=== PATIENT | female | born 1985 ===

== ENCOUNTER 2019-03-09 03:53 | Inpatient (IN) | payer MEDICAID ==
[2019-03-09 05:44] VITALS: BMI 27.8
[2019-03-09] MEDS ORDERED: Lactated Ringer's 1,000 ML IV SCH (05:45)
--- NOTE | 2019-03-09 05:50 | OBADHP ---
Datetime: 03/09/2019 05:39 Admit Comment, IP Provider: 33 y/o , 37.5 wks based on LMP with CHARISSE 03/25/19 presents to [facility] f or suspected ROM. At 1:30 am patient noticed gush of water started coming out, pinkish in color which increased upon standing up. Patient also reports CTx Q20 mins. Denies VB. Reports good movemen ts. Denies back pain, fever, chills, urinary symptoms, N/V. All other systems reviewed and negative. care: [facility], Dr. 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 - 1/50%/-2 - CBC, CMP, T_S, UA - LR 1L @ 125 ml/hr - Hold Metformin 500 mg BID - Continue Levothyroxine 112 mg daily - Monitor for cervical changes Case discussed with Dr. Sharmaine López, PGY1 OB hospitalist Addendum: Pt seen and examined by me. Agree w/ above. 33 yo at 37+5 wks a dmitted to L_D w/ SROM. FHT reactive. GBS negative. (ES) Presentation-Admit: Vertex FHR - Baseline A Provider: 120-130s Membranes, Provider: Ruptured Contraction Comments Provider: Q 7-8mins Comments, ACOG Physical Exam: Gen: NAD Chest: RRR, S1S2 present Lungs: CTAB Abdmen: Gravid, Soft, NT SSE: Gross pooling, Nitrazine positive SVE: 1/50%/-2 Ext: No pedal edema Pool Provider: Positive Nitrazine Provider: Positive IP Hx Assessment: The History has been Reviewed and is Current Vital Signs Provider: Reviewed; Within Normal Limits IP Chief Complaint: Suspected ruptured membranes NICHD Variability Prov Fetus A: Moderate 6-25bpm NICHD Accel Fetus A IP Provider: [id number] FHR Category Provider Fetus A: Category I Dilatation, Provider: 1 Effacement, Provider: 50 Station, Provider: -2 EGA AdmitDate IP: 37.4 IP Adm Impression: Term, intrauterine IP Admit Plan: Initiate labor protocol Datetime: 03/09/2019 05:23 Pelvic Type - PN: Adequate Extremities - PN: Normal Abdomen - PN: Normal Back - PN: Normal Breast - PN: Not Done Lungs - PN: Normal Heart - PN: Normal Thyroid - PN: Not Done Neurologic - PN: Normal HEENT - PN: Normal General - PN: Normal NICHD Decel Fetus A IP Provider: None Genitourinary Exam: Normal DTRs - PN: Not Done
[2019-03-09] MEDS ORDERED: Levothyroxine 112 MCG TAB PO SCH (06:30)
[2019-03-09 06:32] LABS: BASO % 0.4 % (0.0-2.0); EOS % 0.4 % (0.0-4.0); HEMOGLOBIN 13.3 g/dL (12.0-16.0); LYMPH # 1.7 K/uL (1.0-4.3); LYMPH % 17.8 % (20.0-40.0); MEAN CELL VOLUME 92.8 fl (81.0-99.0); MEAN CORPUSCULAR HEMOGLOBIN 31.7 pg (27.0-31.0); MEAN CORPUSCULAR HGB CONC 34.1 g/dL (33.0-37.0); MEAN PLATELET VOLUME 8.4 fl (7.2-11.7); MONO # 0.7 K/uL (0.0-0.8); MONO % 6.9 % (0.0-10.0); NEUT # 7.2 K/uL (1.8-7.0); NEUT % 74.5 % (50.0-75.0); NRBC % 0.1 % (0.0-0.0); RBC 4.2 Mil/uL (3.80-5.20); RED CELL DISTRIBUTION WIDTH 13.2 % (11.5-14.5); WHITE BLOOD COUNT 9.7 K/uL (4.8-10.8)
[2019-03-09 06:40] LABS: ALB/GLOB RATIO 1.1 (1.0-2.1); ALBUMIN 3.5 g/dL (3.5-5.0); ALT/SGPT 51 U/L (9-52); AST/SGOT 37 U/L (14-36); BLOOD UREA NITROGEN 15 mg/dl (7-17); CALCIUM 9.1 mg/dL (8.4-10.2); GFR NON-AFRICAN AMERICAN > 60
[2019-03-09 06:48] LABS: SQUAMOUS EPITHIAL 1 /hpf (0-5); URINE BILIRUBIN NEGATIVE (NEGATIVE); URINE BLOOD SMALL (NEGATIVE); URINE CLARITY SLIGHTY-CLOUDY (Clear); URINE COLOR YELLOW (YELLOW); URINE GLUCOSE (UA) NEG (NEGATIVE); URINE LEUKOCYTE ESTERASE NEG Leu/uL (Negative); URINE PROTEIN NEGATIVE (NEGATIVE); URINE UROBILINOGEN 0.2-1.0 mg/dL (0.2-1.0)
[2019-03-09] MEDS ORDERED: Bupivacaine HCl 0.5% PF (30 ml) Inj ONE (09:03)
[2019-03-09] MEDS ORDERED: Oxytocin 30 UNIT in NS 500 ml 30 UNITS/500 ML BAG IV ONE (09:53)
[2019-03-09] MEDS ORDERED: OXYTOCIN/0.9 % NS 20 UNIT/1,000 ML BAG IV SCH (10:00)
--- NOTE | 2019-03-09 10:08 | OBPN ---
Datetime: 03/09/2019 09:32 IP Progress Impression: Normal progression of labor IP Procedures: Intrauterine Pressure Catheter; Amnio Infusion IP Progress Plan: Continue present management; Anticipate Vaginal Delivery Membranes, Provider: Ruptured FHR - Baseline A Provider: 140 Gestation - Est Wks by US: 37.4 IP Progress Note Comment: S: Patient seen and examined at bedside. Pain controlled s/p epidural. O: SVE: 9100/0 A: 33 y/o 37.4 wk IUP P: insert IUPC, amnioinfusion. Cont. present management Case discussed w/ attending, Dr. Nick Gonzalez, [facility] OB Hospitalist on-call Sign out rec'd. Pt just finished epidural and she feels good/less pain SVE 8-9cm - decels noted earlier...will place IUPC/start amnioinfuson...pt understands disussion a bout labor, procedures, risks and complications. her questoins answered...mahndo glucose on admissio n 82mg/dl Vital Signs Provider: Reviewed; Within Normal Limits NICHD Accel Fetus A IP Provider: [id number] (Annotations: Data stored by CPN on behalf of user) NICHD Variability Prov Fetus A: Moderate 6-25bpm Dilatation, Provider: 9 Effacement, Provider: 100 Station, Provider: 0 NICHD Decel Fetus A IP Provider: None Datetime: 03/09/2019 05:39 Pool Provider: Positive Nitrazine Provider: Positive Contraction Comments Provider: Q 7-8mins Presentation-Admit: Vertex FHR Category Provider Fetus A: Category I
[2019-03-09] MEDS ORDERED: Lidocaine 1% Inj (20ml) ONE (11:02)
[2019-03-09] MEDS ORDERED: Benzocaine/Menthol SPRAY TOP PRN (11:56)
[2019-03-09] MEDS ORDERED: Oxycodone/Acetaminophen 5/325 mg Tab PO PRN ×4 (11:56→14:28)
[2019-03-09] MEDS ORDERED: Bupivacaine 0.25% 300 ML in Sodium Chloride 0.9% 300 ML IS ONE (14:00)
--- NOTE | 2019-03-09 18:14 | OBDS ---
DELIVERY PERSONNEL Delivery Doctor: Chelsie Romero DO Final Inspector: Iman Albarran RN Anesthesiologist: Dr Lam Resident: Dr Gonzalez MATERNAL INFORMATION Delivery Anesthesia: Local; Epidural Medications in Delivery: pitocin Estimated Blood Loss (ml): 200 Placenta Cultured: No Maternal Complications: None Provider Comments: Normal spontanous vaginal delivery of live male infant over intact perineum. One loose nuchal cord was noted and reduced during delivery. The cord was clamped and cut b father; 3 ve ssels noted. Cord blood was obtained and sent to the lab. The placenta was delivered intact spontan eoulsy. Blood loss 200 cc. Mother tolerated procedure well. LABOR SUMMARY EDC: 03/26/2019 00:00 No. Babies in Womb: 1 Labor Anesthesia: Epidural LABOR INFORMATION Reason for Induction: Not Applicable Onset of Labor: 03/09/2019 01:30 Complete Dilatation: 03/09/2019 10:51 Oxytocin: N/A Group B Beta Strep: Negative Steroids Given: None Reason Steroids Not Administered: Not Applicable MEMBRANES Membranes Rupture Method: Spontaneous Rupture of Membranes: 03/09/2019 01:30 Length of Rupture (hrs): 10.20 Amniotic Fluid Color: Clear Amniotic Fluid Amount: Moderate Amniotic Fluid Odor: Normal STAGES OF LABOR Stage 1 hrs: 9 Stage 1 min: 21 Stage 2 hrs: 0 Stage 2 min: 51 Stage 3 hrs: 0 Stage 3 min: 10 Total Time in Labor hrs: 10 Total Time in Labor min: 22 VAGINAL DELIVERY Laceration Extension: First Degree Laceration Type: Perineal Laceration Repair: Yes Laceration Repair Note: 1% Lidocaine was infiltrated (2-3cc). 2.0 Vicryl Rapide suture was used to repair laceration. Hemostasis assured. Initial Vag Sponge Count: 5 Final Vag Sponge Count: 5 Initial Vag Sharps Count: 3 Final Vag Sharps Count: 3 Sponge Count Correct: Yes Sharps Count Correct: Yes Count Comment: two sutures one syringe BABY A INFORMATION Infant Delivery Date/Time: 03/09/2019 11:42 Method of Delivery: Vaginal Born in Route : No : N/A Forceps: N/A Vacuum Extraction: N/A Shoulder Dystocia : No SHOULDER DYSTOCIA BABY A Delivery Date/Time: 03/09/2019 11:42 PRESENTATION/POSITION BABY A Presentation: Cephalic PLACENTA INFORMATION BABY A Placenta Delivery Time : 03/09/2019 11:52 Placenta Method of Delivery: Spontaneous Placenta Status: Delivered SCORES BABY A Heart Rate 1 min: >100 bpm Resp Effort 1 min: Good Cry Reflex Irritability 1 min: Cough or Sneeze or Pulls Away Muscle Tone 1 min: Active Motion Color 1 min: Body [place], Extremities Blue Resuscitation Effort 1 min: Tactile Stimulation SCORE 1 MIN: 9 Heart Rate 5 min: >100 bpm Resp Effort 5 min: Good Cry Reflex Irritability 5 min: Cough or Sneeze or Pulls Away Muscle Tone 5 min: Active Motion Color 5 min: Body [place], Extremities Blue Resuscitation Effort 5 min: N/A SCORE 5 MIN: 9 INFANT INFORMATION BABY A Gestational Age at Delivery: 37.4 Gestational Status: Term Infant Outcome : Liveborn Infant Condition : Stable Sex: Male WEIGHT/LENGTH BABY A Birthweight (gms): 3150 Infant Weight (lb): 6 Weight (oz): 15 CORD INFORMATION BABY A No. Cord Vessels: 3 Nuchal Cord : Around Neck x1, Loose Cord Blood Taken: Yes Suction: Mouth
[2019-03-09] MEDS ORDERED: Benzocaine/Menthol SPRAY ONE (21:17)
[2019-03-10 05:47] LABS: BASO % 0.3 % (0.0-2.0); EOS % 0.3 % (0.0-4.0); HEMOGLOBIN 11.2 g/dL (12.0-16.0); LYMPH # 1.8 K/uL (1.0-4.3); LYMPH % 14.9 % (20.0-40.0); MEAN CORPUSCULAR HEMOGLOBIN 31.3 pg (27.0-31.0); MEAN CORPUSCULAR HGB CONC 33.3 g/dL (33.0-37.0); MEAN PLATELET VOLUME 8.5 fl (7.2-11.7); MONO # 0.7 K/uL (0.0-0.8); MONO % 5.9 % (0.0-10.0); NEUT # 9.5 K/uL (1.8-7.0); NEUT % 78.6 % (50.0-75.0); NRBC % 0.1 % (0.0-0.0); RBC 3.57 Mil/uL (3.80-5.20); RED CELL DISTRIBUTION WIDTH 13.2 % (11.5-14.5); WHITE BLOOD COUNT 12.1 K/uL (4.8-10.8)
[2019-03-10] MEDS: Levothyroxine 112 MCG TAB PO SCH (06:21)
[2019-03-10] MEDS: Multivitamin With Minerals Tab PO SCH (08:39)
[2019-03-10] MEDS ORDERED: Multivitamin With Minerals Tab PO SCH (09:00)
--- NOTE | 2019-03-10 09:40 | OBPPN ---
Datetime: 03/10/2019 06:23 PP Pain Prov: Within normal limits PP Nausea Prov: Denies PP Flatus Prov: Yes PP BM Prov: No PP Breasts Prov: Not Done PP Heart Prov: Normal PP Lungs Prov: Normal PP Abdomen/Uterus Prov: Normal PP Lochia Prov: Normal PP Vulva/Perineum Prov: Normal PP CVA Tenderness Prov: Normal PP Extremities Prov: Normal PP C/S Incision Prov: Not Applicable PP Progress Prov: Normal PP Impression Prov: Normal progression PP Plan Prov: Continue present management PP Progress Note Prov: 33 y/o S/P on PPD1 Patient seen and exmined at bedside. Pain well controlled with pain medications. Ambulating well. TOlerating regular diet well. Denies nuasea, vomiting. Denies fever, chills, CP, SOB. w /o difficulties. VSS Gen: NAD Chest: RRR< S1S2 present Lungs: CTAB Abdomen: Minimal abdominal tedneress, BS+, soft, NT. Ext: No pedal edema Neuro: AAO x3, CN intact grossly, Normal mood and affact. A/P: 33 y/o S/P on PPD1. AFebrile pain well controlled with pain meds. - Ibuprofen and percocet for pain Mx - Encourage ambulation - Encourage - Regular diet - Continue with present Mx - Anticipated D/C 03/10/19 Case discussed with attending Seth López, PGY1 Patient was seen with the resident I agree with the note Vital Signs Provider PP: Reviewed; Within Normal Limits
--- NOTE | 2019-03-10 10:03 | OBDCSUM ---
Datetime: 03/10/2019 09:57 Discharged to, Provider: Home Follow up at, Provider: PMD Disch Instr Activity: Normal activity Disch Instr Diet: Regular Discharge Instructions, Provider: Routine instructions given Discharge Diagnosis, Provider: Term Delivered Follow up in weeks, Provider: 6 weeks Disch Referrals: None Contraception discussed, Prov: Yes Disch Activity Restrictions: Nothing in vagina - [place], tampons, douche Discharge Comment, Provider: patient cleared for discharge Contraception after Delivery: Undecided
[2019-03-11] MEDS: Levothyroxine 112 MCG TAB PO SCH (06:28)
[2019-03-11] MEDS: Multivitamin With Minerals Tab PO SCH (08:52)
--- NOTE | 2019-03-11 10:06 | OBDCSUM ---
Datetime: 03/11/2019 07:11 Discharged to, Provider: Home Follow up at, Provider: [facility] Disch Instr Activity: Normal activity; May Shower Disch Instr Diet: Regular Discharge Instructions, Provider: Routine instructions given Discharge Diagnosis, Provider: Term Delivered Follow up in weeks, Provider: 4-6 weeks Disch Referrals: None Contraception discussed, Prov: Yes Disch Activity Restrictions: No exercising; No sexual activity; Nothing in vagina - [place], karen kee Discharge Comment, Provider: 33 yo s/p on 03/09/19. EGA: 37.5 weeks Diagnosis: on 03/09/19 L_D summary: , No complications. DOD: 03/09/19 @ 11:52 Sex: Male Weight: 3150gm : 9/9 Feeding: breast summary: No complications during , Lochia is similar volume to menses. CBC on admission 13.2/39.6 CBC 11.2/37.6 Blood type: O+ DISCHARGE DATA D/C DATE: 03/11/19 DISCHARGE INSTRUCTIONS: -Encouraged -PNV 1 tab po q/day -Ibuprofen 600 mg 1 tab po q6h PRN mild pain # 20 -Ambulate with caution, nothing per vagina/sex for 4 weeks, no heavy lifting, avoid stairs, if exc essive bleeding or fever without relief from Ibuprofen go to ED - ED precautions: If excessive bleeding, pain that does not get relief, fever >100.4, palpitations , SOB, CP or other concerning symptom go to the ED. - PT was urged if feeling sad, mood swing, depression, neglect of baby, suicidal thoughts, homicid al thoughts go to ER or call 911 for help - Pt should go to her Primary care doctor if have difficulty with breast feeding F/U with Dr. Kate on 04/21/19 for check up. Seth López, PGY1 Contraception after Delivery: Undecided
--- NOTE | 2019-03-11 10:06 | OBPPN ---
Datetime: 03/11/2019 07:06 PP Pain Prov: Within normal limits PP Nausea Prov: Denies PP Flatus Prov: Yes PP BM Prov: Yes PP Breasts Prov: Normal PP Heart Prov: Normal PP Lungs Prov: Normal PP Abdomen/Uterus Prov: Normal PP Lochia Prov: Normal PP Vulva/Perineum Prov: Normal PP CVA Tenderness Prov: Normal PP Extremities Prov: Normal PP Progress Prov: Normal PP Impression Prov: Normal progression PP Plan Prov: Continue present management PP Progress Note Prov: 33 y/o S/P on PPD2 Patient seen and exmined at bedside. Pain well controlled with pain medications. Ambulating well. TOlerating regular diet well. Denies nuasea, vomiting. Denies fever, chills, CP, SOB. w /o difficulties. Passing flatus and had BM. VSS Gen: NAD Chest: RRR, S1S2 present Lungs: CTAB Abdomen: Minimal abdominal tedneress, BS+, soft, NT. Ext: No pedal edema Neuro: AAO x3, CN intact grossly, Normal mood and affact. A/P: 33 y/o S/P on PPD2. AFebrile pain well controlled with pain meds. - Ibuprofen and percocet for pain Mx - Encourage ambulation - Encourage - Regular diet - Continue with present Mx - Anticipated D/C 03/11/19 Case discussed with attending Seth López, PGY1 Patient seen and examined by me this am. .Agree with above note. Patient for discharge home today. Rx given for Motrin. RTC in 6 wks for evaluation and continue pelvic rest. --Dr. Roberto Vital Signs Provider PP: Reviewed; Within Normal Limits
[2019-03-11 16:45] VITALS: BP 99/51; PULSE 73; RESP 18; TEMP 98.5; O2SAT 100
== END 2019-03-11 12:00 | disposition home or self-care (01) | DRG 372 ==
LOC: H.EROB2 03:53 → H.L&D 05:44 → H.OB/GYN 14:00
PROVIDERS: ADMIT Obstetrics & Gynecology; ATTEND Obstetrics & Gynecology
PROC: 10E0XZZ Delivery of Products of Conception, External Approach (ICD-10-PCS; principal; 2019-03-09)
PROC: 0HQ9XZZ Repair Perineum Skin, External Approach (ICD-10-PCS; 2019-03-09)
DX: O24.425 Gestational diabetes mellitus in childbirth, controlled by oral hypoglycemic drugs (principal); O69.81X0 Labor and delivery complicated by cord around neck, without compression, not applicable or unspecified; O70.0 First degree perineal laceration during delivery; O99.284 Endocrine, nutritional and metabolic diseases complicating childbirth; E03.9 Hypothyroidism, unspecified; Z37.0 Single live birth; Z3A.37 37 weeks gestation of pregnancy; Z79.84 Long term (current) use of oral hypoglycemic drugs